=== PATIENT | male | born 1945 | race Caucasian/White ===

== ENCOUNTER 2021-12-23 16:19 | Emergency (ER) | payer MEDICARE, OTHER ==
[2021-12-23 16:32] VITALS: BP 150/80; PULSE 68
[2021-12-23 17:15] LABS: CHLORIDE,CL 101 mmol/L (98-107); SODIUM,NA 137 mmol/L (136-145)
== END 2021-12-23 17:20 | disposition home or self-care (01) ==
LOC: KA.ED 16:19
DX: N20.0 Calculus of kidney (principal); R31.29 Other microscopic hematuria; I10 Essential (primary) hypertension; Z72.0 Tobacco use; Z88.8 Allergy status to other drugs, medicaments and biological substances; Z79.82 Long term (current) use of aspirin; Z79.899 Other long term (current) drug therapy
CPT/HCPCS: 36415; 80053; 81001; 85025; 99284

== ENCOUNTER 2022-07-23 11:34 | Emergency (ER) | payer MEDICARE, OTHER ==
[2022-07-23] MEDS ORDERED: Sodium Chloride 0.9% 1,000 ML IV ONE (11:46)
[2022-07-23] MEDS ORDERED: Ondansetron 4 MG/2 ML SDV IVPUSH ONE (11:49)
[2022-07-23] MEDS ORDERED: Meclizine 25 MG Tab PO ONE (11:50)
[2022-07-23] MEDS ORDERED: Aspirin 81 MG Tab.Chew PO ONE (12:01)
[2022-07-23 12:06] LABS: ANION GAP 13.4 mmol/L (5-15); CHLORIDE,CL 102 mmol/L (98-107); ESTIMATED GFR 80 mL/min (>=60); SODIUM,NA 138 mmol/L (136-145)
== END 2022-07-23 13:35 | disposition home or self-care (01) ==
LOC: KA.ED 11:34 → MERGE 11:34 → KA.ED 13:35
DX: R42 Dizziness and giddiness (principal); I10 Essential (primary) hypertension; F17.210 Nicotine dependence, cigarettes, uncomplicated; Z79.82 Long term (current) use of aspirin; Z79.899 Other long term (current) drug therapy
CPT/HCPCS: 36415; 80048; 81001; 84484; 85025; 93005; 93010; 96361; 96374; 99284-25; 99285; A9270-GY; J2405; J7030

== ENCOUNTER 2025-04-16 07:50 | Day surgery (SDC) | payer MEDICARE, OTHER ==
[~2025-04-16 07:50] MED LIST: Sodium Chloride 0.9% 10 ML Syringe FLUSH PRN
[2025-04-16] MEDS: Lactated Ringers 1,000 ML IV SCH (07:57)
[2025-04-16] MEDS ORDERED: Propofol 200 MG/20 ML SDV ONE (08:19)
[2025-04-16] MEDS ORDERED: Sodium Chloride 0.9% 10 ML Syringe FLUSH PRN (08:45)
[2025-04-16] MEDS ORDERED: Lactated Ringers 1,000 ML IV SCH (08:45)
== END 2025-04-16 10:28 | disposition home or self-care (01) ==
LOC: KA.SDS 07:50
PROVIDERS: ATTEND Surgery
DX: Z12.11 Encounter for screening for malignant neoplasm of colon (principal); K57.30 Diverticulosis of large intestine without perforation or abscess without bleeding; I25.10 Atherosclerotic heart disease of native coronary artery without angina pectoris; I10 Essential (primary) hypertension; F17.210 Nicotine dependence, cigarettes, uncomplicated; Z88.8 Allergy status to other drugs, medicaments and biological substances; Z79.82 Long term (current) use of aspirin; Z79.899 Other long term (current) drug therapy; Z86.0100 Personal history of colon polyps, unspecified
CPT/HCPCS: 00811; 99100; J2704; J7120